=== PATIENT | male | born 1990 | race Caucasian/White ===

== ENCOUNTER 2019-04-08 03:03 | Emergency (ER) | payer OTHER ==
[~2019-04-08] VITALS: Ht 170.2 cm; Wt 84.1 kg
[2019-04-08 03:10] VITALS: BP 131/69; PULSE 105; RESP 18; Ht 170.2 cm; Wt 84.1 kg
== END 2019-04-08 03:18 | disposition home or self-care (01) ==
LOC: E/R 03:03
DX: Z02.89 Encounter for other administrative examinations (principal); R40.2142 Coma scale, eyes open, spontaneous, at arrival to emergency department; R40.2362 Coma scale, best motor response, obeys commands, at arrival to emergency department; R40.2252 Coma scale, best verbal response, oriented, at arrival to emergency department
CPT/HCPCS: 99282